=== PATIENT | male | born 1950 | race Caucasian/White ===

== ENCOUNTER → 2019-05-22 08:59 | Outpatient (CLI) | payer MEDICARE, OTHER, SELFPAY ==
[2019-05-22 09:51] LABS: Add Manual Diff / Slide Review NO; Basophils Absolute Auto 0 /uL (0-100); Basophils Percent Auto 0.6 % (0-2); Eosinophils Absolute Auto 200 /uL (0-450); Eosinophils Percent Auto 2.4 % (2-4); Hemoglobin 14.5 g/dL (13.5-17.5); Lymphocytes Absolute Auto 1700 /uL (1100-4500); Lymphocytes Percent Auto 21.6 % (25-40); Mean Corpuscular HGB Conc 33.7 % (30-36); Mean Corpuscular Hemoglobin 30.7 PG (26-34); Mean Corpuscular Volume 91.2 fL (80-100); Monocytes Absolute Auto 700 /uL (0-900); Monocytes Percent Auto 9.1 % (3-14); Neutrophils Absolute Auto 5200 /uL (1500-7000); Neutrophils Percent Auto 66.3 % (50-75); Platelet Count 202 X10^3/uL (150-400); Red Blood Cell Count 4.72 X10^6/uL (4.5-5.9); Red Cell Distribution Width 14.2 % (11.6-14.8); White Blood Cell Count 7.9 X10^3/uL (4.5-11.0)
[2019-05-22 10:02] LABS: Hemoglobin A1C% w Est Avg Glu 7.5 % (4.0-6.0)
[2019-05-22 10:10] LABS: Appearance Urine UA CLEAR; Bilirubin Urine UA NEGATIVE (NEGATIVE); Color Urine UA YELLOW; Glucose Urine UA NEGATIVE (Negative); Ketones Urine UA NEGATIVE (NEGATIVE); Leukocyte Esterase Urine UA NEGATIVE (NEGATIVE); Nitrite Urine UA NEGATIVE (Negative); Occult Blood Urine UA 1+ (Negative); Protein Urine UA TRACE (Negative); Urobilinogen Urine UA 0.2 E.U./dL (0.2); pH Urine UA 5.5 (4.5-8.0)
[2019-05-22 10:13] LABS: Creatinine Urine Random 125.7 mg/dL
[2019-05-22 10:14] LABS: Alanine Aminotransferase 29 IU/L (21-72); Albumin 4.4 g/dL (3.5-5.0); Albumin Globulin Ratio 1.4 (1.0-2.8); Alkaline Phosphatase 102 U/L (38-126); Aspartate Aminotransferase 37 IU/L (17-59); Bilirubin Total 0.6 mg/dL (0.2-1.3); Blood Urea Nitrogen 14 mg/dL (9-20); Calcium 9.3 mg/dL (8.4-10.2); Carbon Dioxide 26 mmol/L (22-32); Chloride 102 mmol/L (98-107); Estimated Glomerular Filt Rate > 60.0 mL/min (>60); Globulin 3.1 g/dL (1.7-4.1); Glucose 161 mg/dL (80-110); HEMOLYSIS < 15 (0-50); Potassium 4.2 mmol/L (3.4-5.1); Sodium 138 mmol/L (137-145); Total Protein 7.5 g/dL (6.3-8.2)
[2019-05-22 10:17] LABS: Microalbumin Urine Random 11.7 mg/dL (0-1.6)
[2019-05-22 10:33] LABS: Bacteria Urine Moderate (10-30); Hyaline Casts Urine 0-1/LPF; Mucus Urine 1+ (Negative); RBC Urine 1-5/HPF (0-5/HPF); Squamous Epithelial Cell Urine 0-1 /HPF (0-5/HPF); WBC Urine 5-10/HPF (0-5/HPF)
[2019-05-22 10:40] LABS: TSH w/ Reflex to FT4 1.92 uIU/mL (0.47-4.68)
[2019-05-26 09:38] LABS: Lipoprofile NMR SEE SEPERATE REPORT
== END ==
PROVIDERS: Family Provider Family Medicine; PCP Family Medicine; Visit Provider Specialist
DX: E11.65 Type 2 diabetes mellitus with hyperglycemia (principal); E78.00 Pure hypercholesterolemia, unspecified
CPT/HCPCS: 36415; 80053; 81001; 82043; 82570; 83036; 83704; 84443; 85025; 87086

== ENCOUNTER → 2022-08-21 08:50 | Outpatient (CLI) | payer MEDICARE, SELFPAY | PROVIDERS: Family Provider Family Medicine; PCP Family Medicine; Referring Provider Family Medicine; Visit Provider Surgery | DX: E11.621 Type 2 diabetes mellitus with foot ulcer (principal); L97.522 Non-pressure chronic ulcer of other part of left foot with fat layer exposed; E11.40 Type 2 diabetes mellitus with diabetic neuropathy, unspecified; L84 Corns and callosities | CPT/HCPCS: 11042; 87070; 87075; 87077; 87186; 87205; 99204; 99214 ==

== ENCOUNTER → 2022-08-22 07:03 | Outpatient (CLI) | payer MEDICARE, SELFPAY ==
--- NOTE | 2022-08-22 07:07 | DI.RAD.S_ITS ---
PROCEDURE: XR FOOT LT MIN 3V INDICATIONS: evaluate for osteomyelitis TECHNIQUE: 3 views of the foot were acquired. COMPARISON: None. FINDINGS: Bones: There is suggestion of erosion involving plantar aspect of 1st distal phalangeal tuft and distal shaft. No other area of abnormal bony erosion is seen. Osteoarthritic changes are noted throughout left foot particularly in the interphalangeal joints and 1st CMC joint. No fractures or dislocations. No suspicious bony lesions. Well-defined plantar and dorsal calcaneal enthesophytes are seen. Soft tissues: No tibiotalar joint effusion. Achilles tendon appears normal. IMPRESSION: Finding is suggestive of osteomyelitis involving plantar aspect of 1st distal phalangeal tuft. No fracture or dislocation. No suspicious bony lesion. Left foot osteoarthritis. Dictated by: Thee Orozco M.D. on 08/22/2022 at 11:25 Approved by: Thee Orozco M.D. on 08/22/2022 at 11:26
== END ==
PROVIDERS: Family Provider Family Medicine; PCP Family Medicine; Referring Provider Surgery; Visit Provider Surgery
DX: E11.621 Type 2 diabetes mellitus with foot ulcer (principal); L08.9 Local infection of the skin and subcutaneous tissue, unspecified; M19.072 Primary osteoarthritis, left ankle and foot
CPT/HCPCS: 73630

== ENCOUNTER → 2022-08-30 08:41 | Outpatient (CLI) | payer MEDICARE, SELFPAY | PROVIDERS: Family Provider Family Medicine; PCP Family Medicine; Referring Provider Family Medicine; Visit Provider Surgery | DX: E11.621 Type 2 diabetes mellitus with foot ulcer (principal); L97.522 Non-pressure chronic ulcer of other part of left foot with fat layer exposed; M86.172 Other acute osteomyelitis, left ankle and foot; L84 Corns and callosities; L53.9 Erythematous condition, unspecified; E11.40 Type 2 diabetes mellitus with diabetic neuropathy, unspecified | CPT/HCPCS: 11043; 99213 ==

== ENCOUNTER → 2022-09-07 08:42 | Outpatient (CLI) | payer MEDICARE, SELFPAY | PROVIDERS: Family Provider Family Medicine; PCP Family Medicine; Referring Provider Family Medicine; Visit Provider Surgery | DX: E11.621 Type 2 diabetes mellitus with foot ulcer (principal); L97.522 Non-pressure chronic ulcer of other part of left foot with fat layer exposed; L84 Corns and callosities; E11.40 Type 2 diabetes mellitus with diabetic neuropathy, unspecified | CPT/HCPCS: 11042 ==

== ENCOUNTER → 2023-03-08 06:57 | Outpatient (CLI) | payer MEDICARE, SELFPAY ==
--- NOTE | 2023-03-08 | DI.MRI.S_ITS ---
PROCEDURE: MR SHOULDER RT WO CON INDICATIONS: Complete rotator cuff tear of right shoulder TECHNIQUE: Noncontrast oblique coronal T2 fast spin echo with fat saturation, oblique sagittal T1 spin echo and T2 fast spin echo with fat saturation, axial T1 spin echo and T2 fast spin echo with fat saturation through the shoulder. COMPARISON: [facility], CR, XR SHOULDER 2+ VIEWS RIGHT, 02/27/2023, 14:39. FINDINGS: Image quality: Excellent. Rotator cuff: There is full-thickness tear of the supraspinatus tendon with tendon retraction to the musculotendinous junction. There is moderate supraspinatus muscle atrophy. There is at least high-grade partial thickness tear of the infraspinatus tendon. Suspect full-thickness tear of the superior fibers of infraspinatus tendon. No tendon retraction or muscle atrophy. There is full-thickness tear of the distal subscapularis tendon attachment. There is mild subscapularis muscle atrophy. Bones and bursae: No bone marrow contusions or fractures. There is moderate acromioclavicular and glenohumeral joint degeneration. The acromion demonstrates conventional anatomy, without an os acromiale. Small to moderate joint effusion. Capsule and soft tissues: There is diffuse degenerative labral tear. There is severe tendinosis of the long head of the biceps tendon. There is likely at least high-grade partial tear of the biceps tendon. The rotator interval appears normal, without fibrosis. The coracohumeral ligament is normal in thickness. IMPRESSION: 1. Full-thickness tear of the supraspinatus tendon with tendon retraction and moderate supraspinatus muscle atrophy. 2. Full-thickness tear of the subscapularis tendon. No tendon retraction. There is mild subscapularis muscle atrophy. 3. At least high-grade partial-thickness tear of the infraspinatus tendon. No tendon retraction or muscle atrophy. 4. At least high-grade partial tear and severe tendinosis of the long head of the biceps tendon. 5. Moderate acromioclavicular and glenohumeral joint degeneration. 6. Diffuse degenerative tear of the glenoid labrum. Dictated by: Mildred Miner M.D. on 03/08/2023 at 11:05 Approved by: Mildred Miner M.D. on 03/08/2023 at 11:37
== END ==
PROVIDERS: Family Provider Family Medicine; PCP Family Medicine; Referring Provider Orthopaedic Surgery; Visit Provider Orthopaedic Surgery
DX: M75.121 Complete rotator cuff tear or rupture of right shoulder, not specified as traumatic (principal); S46.111A Strain of muscle, fascia and tendon of long head of biceps, right arm, initial encounter; M19.011 Primary osteoarthritis, right shoulder; S43.491A Other sprain of right shoulder joint, initial encounter
CPT/HCPCS: 73221

== ENCOUNTER → 2023-05-22 07:26 | Outpatient (CLI) | payer MEDICARE, SELFPAY ==
[2023-05-22 08:07] LABS: Add Manual Diff / Slide Review NO; Basophils Absolute Auto 0 /uL (0-100); Basophils Percent Auto 0.6 % (0-2); Eosinophils Absolute Auto 200 /uL (0-450); Eosinophils Percent Auto 3.3 % (2-4); Hematocrit 44.4 % (41-53); Lymphocytes Absolute Auto 1200 /uL (1100-4500); Lymphocytes Percent Auto 18.7 % (25-40); Mean Corpuscular HGB Conc 33.7 % (30-36); Monocytes Absolute Auto 800 /uL (0-900); Monocytes Percent Auto 11.8 % (3-14); Neutrophils Absolute Auto 4200 /uL (1500-7000); Neutrophils Percent Auto 65.6 % (50-75); Platelet Count 161 X10^3/uL (150-400); Red Blood Cell Count 4.83 X10^6/uL (4.5-5.9); Red Cell Distribution Width 15.3 % (11.6-14.8); White Blood Cell Count 6.4 X10^3/uL (4.5-11.0)
--- NOTE | 2023-05-22 08:32 | DI.CT.S_ITS ---
PROCEDURE: CT UE RT WO CON INDICATIONS: PRIMARY OSTEOARTHRITIS OF RIGHT SHOULDER TECHNIQUE: Noncontrast 1-1.5 mm thick sections acquired from the acromioclavicular joint to the inferior scapula, with coronal and sagittal reformatting. COMPARISON: [facility] [place], CR, XR SHOULDER 2+ VIEWS RIGHT, 02/27/2023, 14:39. [facility], MR, MR SHOULDER RT WO CON, 03/08/2023, 7:21. FINDINGS: Image quality: Excellent. Bones: No acute osseous fracture. Moderate degenerative changes are seen at the glenohumeral joint with joint space narrowing and marginal osteophyte formation. No significant glenoid retroversion or anteversion. Humeral head is mildly high riding with narrowing of the acromiohumeral interval. Moderate degenerative changes are seen at the acromioclavicular joint. Degenerative changes are also noted in the included spine. Probable mild chronic posttraumatic deformity of the right posterior 4th rib. Soft tissues: Moderate fluid is seen in the subacromial/subdeltoid bursa and glenohumeral joint space. There is fatty infiltration and atrophy of the supraspinatus and infraspinatus muscles and the superior portion of the subscapularis muscle, consistent with underlying full-thickness rotator cuff tendon tears as seen on the prior MRI. The articular cartilages, labrum, ligaments, and tendons are not well evaluated with standard CT. No significant at slowly lymphadenopathy. The included portions of the right lung are clear. IMPRESSION: 1. Moderate glenohumeral osteoarthrosis. 2. Moderate acromioclavicular joint osteoarthrosis. 3. Known full-thickness rotator cuff tendon tears are better evaluated on the prior MRI from 03/08/2023. Humeral head is mildly high riding. 4. Moderate subacromial/subdeltoid bursal effusion communicates with the glenohumeral joint space. Approved by: Gui Bennett M.D. on 05/22/2023 at 13:33
[2023-05-22 08:51] LABS: BUN Creatinine Ratio 29.4 (6-22); Blood Urea Nitrogen 20 mg/dL (9-20); Calcium 9.6 mg/dL (8.4-10.2); Carbon Dioxide 24 mmol/L (22-32); Chloride 102 mmol/L (98-107); Estimated Glomerular Filt Rate > 60 mL/min (>60); Glucose 147 mg/dL (80-110); HEMOLYSIS < 15 (0-50); Potassium 4.3 mmol/L (3.4-5.1); Sodium 137 mmol/L (137-145)
== END ==
PROVIDERS: Family Provider Family Medicine; PCP Family Medicine; Referring Provider Orthopaedic Surgery; Visit Provider Orthopaedic Surgery
DX: Z01.818 Encounter for other preprocedural examination (principal); M19.011 Primary osteoarthritis, right shoulder; Z01.812 Encounter for preprocedural laboratory examination; M75.121 Complete rotator cuff tear or rupture of right shoulder, not specified as traumatic; M25.411 Effusion, right shoulder
CPT/HCPCS: 36415; 73200; 80048; 85025; 93005

== ENCOUNTER 2023-07-11 08:52 | Day surgery (SDC) | payer OTHER, SELFPAY ==
[2023-07-04 09:58] VITALS: BMI 34.9
[2023-07-11] VITALS (12 sets, daily range): BP systolic 105–144; BP diastolic 68–87; PULSE 87–116; RESP 12–92; TEMP 36.3–36.7; O2SAT 22–98; BMI 30.4
--- NOTE | 2023-07-11 06:00 | DI.RAD.S_ITS ---
PROCEDURE: XR SHOULDER RT 1V INDICATIONS: RTSA TECHNIQUE: 1 views of the shoulder were acquired. COMPARISON: None. FINDINGS: Bones: No fractures or dislocations. No suspicious bony lesions. Visualized ribs appear intact. Well-aligned, intact arthroplasty without hardware complication. Soft tissues: No suspicious soft tissue calcifications. IMPRESSION: Expected postop appearance of a right shoulder arthroplasty. Dictated by: Masoud Casillas M.D. on 07/11/2023 at 14:10 Approved by: Masoud Casillas M.D. on 07/11/2023 at 14:10
[2023-07-11] MEDS: LACTATED RINGERS 1,000 ML 42 ML IV ×2 (09:36→12:23)
[2023-07-11] MEDS: ACETAMINOPHEN 325 MG TABLET 975 MG PO (09:42)
[2023-07-11] MEDS: CELECOXIB 200 MG CAPSULE PO (09:43)
--- NOTE | 2023-07-11 10:11 | PM.HP.1 ---
History of Present Illness History of Present Illness Date Patient Seen: 07/11/23 Time Patient Seen: 10:11 Chief complaint: Right Total Shoulder Arthroplasty - Reverse 07/11 Narrative: This is a 72-year-old male with several years of increasing right shoulder pain and weakness. 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 Has not had any changes since I last saw him in clinic 05/14. Here with his today. Denies any distal numbness or tingling. PFS Medical History Vitamin D deficiency Proteinuria Kidney stone HLD (hyperlipidemia) Easy bruisability Osteoarthritis Diabetes HTN (hypertension) Surgical History Hx of cystoscopy (11/21/22) History of transurethral resection of prostate Hx of lithotripsy Social History household members: spouse Smoking Status: Never smoker alcohol intake: current Meds Home Medications and Allergies Home Medications Medication Instructions Recorded Confirmed Type amlodipine 2.5 mg tablet (Norvasc) 2.5 mg PO BEDTIME ##0 09/01/12 07/11/23 History metformin 500 mg tablet 500 mg PO BID 07/04/23 07/11/23 History naproxen sodium 220 mg capsule 660 mg PO DAILY PRN Pain 07/04/23 07/11/23 History (Aleve) finasteride 5 mg tablet 5 mg PO DAILY 07/11/23 07/11/23 History insulin glargine 100 unit/mL (3 58 unit SUBCUT DAILY 07/11/23 07/11/23 History mL) subcutaneous pen (Lantus Solostar U-100 Insulin) Allergies Allergy/AdvReac Type Severity Reaction Status Date / Time No Known Drug Allergies Allergy Verified 07/11/23 09:09 Review of Systems Review of Systems ROS: Yes All systems reviewed with the patient and are negative except as otherwise documented Exam Vital Signs (past 8 hours): - 07/11/23 09:17 Temperature 98.1 F Pulse Rate 87 Respiratory Rate 18 Blood Pressure 134/84 Pulse Oximetry 96 Oxygen Delivery Method Room Air Oxygen Delivery Method Room Air Narrative Exam Narrative: HEENT: Head atraumatic eyes anicteric moist mucous membranes Cardiovascular: Palpable peripheral pulses extremities are warm and well perfused Respiratory: Breathing comfortably on room air Psychiatric: Appropriate mood and affect Neuro: No acute deficits Musculoskeletal: Exam of the right upper extremity demonstrates limited forward elevation secondary to pain and weakness to about 90?. Sensation intact distally in median, radial, ulnar, axillary nerve distributions. Assessment & Plan Assessment & Plan narrative: Assessment: 72-year-old male with right rotator cuff tear arthropathy Plan: As discussed previously in clinic we are planning on a reverse total shoulder arthroplasty. Risks and benefits of surgery were discussed again including the risk of infection, damage to internal structures, bleeding, nerve injury, instability, need for revision surgery, blood clots, anesthesia and . No guarantees were made regarding outcomes. Patient expressed understanding and accepted these risks and wished to go forward with surgery and consent was signed. His right upper extremity was marked with my initials.
--- NOTE | 2023-07-11 10:50 | SUR.PREOP ---
Dr Cleary here to do right intrascalene block. Monitoring initiated and maintained throughout procedure. Time out performed at 1027. Oxygen and medications given per Dr Cleary's instruction. Injection time 1036. Block completed at 1041. Patient remained stable throughout procedure with no adverse reactions noted.
[2023-07-11] MEDS: CEFAZOLIN VIAL 3 GM in SODIUM CHLORIDE 0.9% 100 ML IV (11:05)
[2023-07-11] MEDS: TRANEXAMIC ACID 1,000 MG VIAL 1000 MG INJ (11:12)
--- NOTE | 2023-07-11 11:39 | SUR.OPER ---
Beach chair with [employer] shoulder positioner. Lower body on padded OR bed. Head in foam padded head cradle, secured with straps. Non-operative arm secured <90 degrees abduction padded with gel pad, 2 Pillows under knees. Safety belt at thigh. Cloth tape over blanket over lower legs.
[2023-07-11] MEDS: BUPIVACAINE 0.25% (PF) 30 ML, EPINEPHrine 0.15 MG INJ (11:43)
[2023-07-11] MEDS: OXYCODONE IR 5 MG TABLET PO (13:33)
[2023-07-11] MEDS: ONDANSETRON 4 MG/2 ML INJ IV (13:33)
--- NOTE | 2023-07-11 13:45 | P.OP_ITS ---
Operative Date/Time/Diagnoses Date of procedure: 07/11/23 Time of procedure: 13:45 Pre-op diagnosis: Right rotator cuff arthropathy Post-op diagnosis: same Procedure & Clinicians Procedure: Right reverse total shoulder arthroplasty Same procedure as scheduled: Yes Indications: Indications: This is a who has rotator cuff arthropathy. Symptoms have been present for years, insidious onset. Patient has failed conservative therapy including injections, physical therapy, anti-inflammatories and activity modification. After extensive discussion in clinic, they wished to go forward with surgery. Risks and benefits were described including the risk of infection, bleeding, damage to internal structures including nerves. We also discussed the risk of failure of surgery and the need for revision surgery as well as the risk of anesthesia. The patient expressed understanding with these risks and wished to go forward with surgery. Surgeon: Nathaniel Sorensen Pumping Supervisor: Ismael Nogueira Anesthesia Type: General Operative Notes Findings: Findings: Osteoarthritis of the glenoid and humeral head as well as a defient rotator cuff as noted on preoperative imaging and under direct visualization Closure Type: primary Specimen(s): none sent Prosthetic devices, grafts, tissues, transplants, or devices: Tornier implants Base plate: 29 mm, full wedge Glenosphere: 39 mm Stem: Perform 4. Poly: +0 concentric Estimated Blood Loss (mL): 50 Blood products transfused: none Procedure in detail: Patient was seen in the preoperative holding unit. The correct right shoulder was identified and marked with my initials. Again we discussed the risks and benefits of surgery and they wished to go forward with surgery. The patient was brought back to the operating room and placed supine on the operating table. Smooth endotracheal intubation was performed by anesthesia. All prominences were padded and they were placed into the beach chair position. Intravenous antibiotics were given. The right shoulder was then prepped with the standard sterile preparation and draping. A time-out was then performed in my initials were again identified on the correct shoulder. 1 g of IV tranexamic acid was given. A standard deltopectoral incision was made. Skin flaps were made. The cephalic vein was identified and retracted laterally. This was protected throughout the remainder of the case. Sharp dissection was made along the deltoid, subacromial and subcoracoid space to release adhesions. The conjoined tendon was identified and the axillary nerve was palpated and continuous using the tug test. It was protected throughout the remainder of the case. A brown retractor was placed underneath the deltoid muscle and a darach retractor underneath the conjoint tendon. The anterior circumflex artery and associated veins on the lower border of the subscapularis were identified and tied off using 0-Vicryl. The biceps tendon was identified in the bicipital groove. This was released from its sheath, and taken from its origin on the glenoid and tied into the pectoralis tendon for a solid tenodesis. We then began a subscapularis peel. The subscapularis was tagged with an Ethibond suture. A 360 degree circumferential release of the subscapularis was performed with protection of the axillary nerve. The coracohumeral ligament was released at the base of the coracoid. The coracoacromial ligament was left intact. The shoulder was then dislocated. Osteophytes were removed using combination of rongeur and osteotome. The rotator cuff was noted to be insufficient. An intramedullary guide was used set at version of 30?. Using an oscillating saw a conservative humeral head cut was made. Impaction reamers were reamed up to a size 4 Stem with a built-in angle 135?. A neck protector was placed. Attention was then turned to the glenoid. After retracting the humeral head posteriorly a circumferential release was performed of the capsule with protection of the axillary nerve. The labrum was then released starting at the biceps anchor and going around the rim a small amount of triceps was released from the inferior glenoid. A center guide pin was then placed using the guide, followed by Reamer. After adequate cartilage was removed the center drill hole was drilled and measured. The base plate was then implanted and screwed into place. The superior drill hole was drilled and filled in a nonlocking fashion, followed by the inferior and anterior holes in locking fashion, the posterior hole was also filled. A 39 glenosphere was then selected and screwed into plac e onto the base plate. Turning back to the humerus, the humeral head was delivered and trialed with a 0 concentric. The arm was taken through range of motion and this was felt to be stable. The trial was then removed and a dilute Betadine wash was then performed with 1 L of sterile saline. Before placing the final implant, drill holes were made in the bicipital groove for the subscapularis repair, and sutures were passed through the drill holes. The final stem was then impacted into the humerus. The shoulder was then reduced and again brought through range of motion and was felt to be stable. The interval was then closed using #2 Ethibond. The subscapularis was then repaired using a modified racking hitch with nice loupes. The deltopectoral interval was then closed with #2 Ethibond. The skin was closed with 2-0 PDS and nicole followed by Aquacel dressing. Patient was awoken from anesthesia and brought back to the postoperative recovery unit without issue. They were placed into a sling. Assisting participation: This operation could not have been safely performed (without compromising the technical results or length of the procedure) without the assistance of a skilled surgical instrument technician. The surgical instrument technician was medically necessary for proper positioning, retraction and manipulation of instruments, proper exposure, graft prep, and manipulation of tissue. Complications: none Post-operative Condition: stable Disposition: PACU Plan for aftercare: Postoperative instructions: Sling to remain on for 6 weeks. No external rotation past neutral for 6 weeks. Okay for him to come off her shower. Okay to shower over the Aquacel dressing. If any water gets underneath the dressing, remove the dressing. First postoperative visit in 2 weeks.
== END 2023-07-11 15:25 | disposition home or self-care (01) | DRG 483 ==
LOC: AC 14:17 → OR 07-25 13:58
PROVIDERS: Family Provider Family Medicine; PCP Family Medicine; Referring Provider Orthopaedic Surgery; Visit Provider Orthopaedic Surgery
PROC: 0RRJ00Z Replacement of Right Shoulder Joint with Reverse Ball and Socket Synthetic Substitute, Open Approach (ICD-10-PCS; CPT 23472; principal; 2023-07-11 10:15)
DX: M19.011 Primary osteoarthritis, right shoulder (principal); G89.18 Other acute postprocedural pain; E11.9 Type 2 diabetes mellitus without complications; I10 Essential (primary) hypertension; Z79.84 Long term (current) use of oral hypoglycemic drugs; Z79.4 Long term (current) use of insulin
CPT/HCPCS: 23472; 64450; 73020; 82962; C1776; J0171; J0330; J0690; J1100; J2405; J2704; J3010

== ENCOUNTER → 2023-11-06 06:59 | Outpatient (CLI) | payer MEDICARE, SELFPAY ==
[2023-11-06 08:02] LABS: Hemoglobin A1C% w Est Avg Glu 6.6 % (4.0-6.0)
[2023-11-06 08:14] LABS: Alanine Aminotransferase 18 IU/L (<50); Albumin 4.4 g/dL (3.5-5.0); Albumin Globulin Ratio 1.5 (1.0-2.8); Alkaline Phosphatase 82 U/L (38-126); Aspartate Aminotransferase 24 IU/L (17-59); BUN Creatinine Ratio 32.2 (6-22); Bilirubin Total 0.8 mg/dL (0.2-1.3); Blood Urea Nitrogen 19 mg/dL (9-20); Calcium 9.7 mg/dL (8.4-10.2); Carbon Dioxide 26 mmol/L (22-32); Chloride 105 mmol/L (98-107); Cholesterol 109 mg/dL (140-199); Estimated Glomerular Filt Rate > 60 mL/min (>60); Glucose 160 mg/dL (80-110); HDL Cholesterol 46 mg/dL (40-60); HEMOLYSIS < 15 (0-50); LDL Cholesterol Calculated 26 mg/dL (<100); Potassium 4.4 mmol/L (3.4-5.1); Sodium 139 mmol/L (137-145); Total Protein 7.4 g/dL (6.3-8.2); Triglycerides 186 mg/dL (35-150)
[2023-11-06 08:44] LABS: Prostate Specific Antigen Scrn 0.396 ng/mL (0.1-4.0)
== END ==
PROVIDERS: Family Provider Family Medicine; PCP Family Medicine; Referring Provider Family Medicine; Visit Provider Family Medicine
DX: E11.9 Type 2 diabetes mellitus without complications (principal); Z12.5 Encounter for screening for malignant neoplasm of prostate; E78.5 Hyperlipidemia, unspecified
CPT/HCPCS: 36415; 80053; 80061; 83036; G0103

== ENCOUNTER → 2024-01-11 07:06 | Outpatient (CLI) | payer MEDICARE, SELFPAY ==
[2024-01-11 08:00] LABS: Add Manual Diff / Slide Review NO; Basophils Absolute Auto 0 /uL (0-100); Basophils Percent Auto 0.6 % (0-2); Eosinophils Absolute Auto 200 /uL (0-450); Eosinophils Percent Auto 2.6 % (2-4); Hematocrit 44.2 % (41-53); Hemoglobin 14.4 g/dL (13.5-17.5); Lymphocytes Absolute Auto 1300 /uL (1100-4500); Lymphocytes Percent Auto 16.6 % (25-40); Mean Corpuscular HGB Conc 32.6 % (30-36); Mean Corpuscular Hemoglobin 29.8 PG (26-34); Mean Corpuscular Volume 91.4 fL (80-100); Monocytes Absolute Auto 800 /uL (0-900); Monocytes Percent Auto 9.6 % (3-14); Neutrophils Absolute Auto 5700 /uL (1500-7000); Neutrophils Percent Auto 70.6 % (50-75); Platelet Count 183 X10^3/uL (150-400); Red Blood Cell Count 4.83 X10^6/uL (4.5-5.9); Red Cell Distribution Width 15.2 % (11.6-14.8); White Blood Cell Count 8.1 X10^3/uL (4.5-11.0)
[2024-01-11 08:09] LABS: Appearance Urine UA CLEAR; Bilirubin Urine UA NEGATIVE (NEGATIVE); Color Urine UA YELLOW; Glucose Urine UA 2+ g/dL (Negative); Hemoglobin A1C% w Est Avg Glu 6.7 % (4.0-6.0); Ketones Urine UA NEGATIVE (NEGATIVE); Leukocyte Esterase Urine UA NEGATIVE (NEGATIVE); Nitrite Urine UA NEGATIVE (Negative); Occult Blood Urine UA 2+ (Negative); Protein Urine UA NEGATIVE (Negative); Specific Gravity Urine UA 1.015 (1.000-1.035); Urobilinogen Urine UA 0.2 E.U./dL (0.2); pH Urine UA 5.5 (4.5-8.0)
[2024-01-11 08:20] LABS: Bacteria Urine None Seen; Culture Indicated Urine Specimen Cultured; RBC Urine 1-5/HPF (0-5/HPF); Squamous Epithelial Cell Urine None Seen (0-5/HPF); Urine Volume 10mL (spun); WBC Urine 30-100/HPF (0-5/HPF)
[2024-01-11 08:24] LABS: Alanine Aminotransferase 19 IU/L (<50); Albumin 4.6 g/dL (3.5-5.0); Albumin Globulin Ratio 1.8 (1.0-2.8); Alkaline Phosphatase 74 U/L (38-126); Aspartate Aminotransferase 27 IU/L (17-59); BUN Creatinine Ratio 32.8 (6-22); Bilirubin Total 0.8 mg/dL (0.2-1.3); Blood Urea Nitrogen 20 mg/dL (9-20); Calcium 9.1 mg/dL (8.4-10.2); Carbon Dioxide 25 mmol/L (22-32); Chloride 103 mmol/L (98-107); Cholesterol 104 mg/dL (140-199); Estimated Glomerular Filt Rate > 60 mL/min (>60); Globulin 2.5 g/dL (1.7-4.1); Glucose 131 mg/dL (80-110); HDL Cholesterol 49 mg/dL (40-60); HEMOLYSIS < 15 (0-50); LDL Cholesterol Calculated 33 mg/dL (<100); Potassium 4.5 mmol/L (3.4-5.1); Sodium 137 mmol/L (137-145); Total Protein 7.1 g/dL (6.3-8.2); Triglycerides 109 mg/dL (35-150); VLDL Cholesterol Calculated 22 mg/dL (2-30)
[2024-01-11 08:40] LABS: Free T4, Direct Thyroxine 0.89 ng/dL (0.78-2.19)
[2024-01-11 08:42] LABS: Creatinine Urine Random 38.95 mg/dL
[2024-01-11 08:46] LABS: Microalbumin Urine Random 4.8 mg/dL (0-1.6)
[2024-01-11 08:55] LABS: Thyroid Stimulating Hormone 1.67 uIU/mL (0.47-4.68)
[2024-01-11 09:12] LABS: Vitamin B12 317 pg/mL (239-931)
== END ==
LOC: LAB 07:06
PROVIDERS: Family Provider Family Medicine; PCP Family Medicine; Referring Provider Specialist; Visit Provider Specialist
DX: E11.65 Type 2 diabetes mellitus with hyperglycemia (principal); E78.00 Pure hypercholesterolemia, unspecified
CPT/HCPCS: 36415; 80053; 80061; 81001; 82043; 82570; 82607; 83036; 84439; 84443; 85025; 87086

== ENCOUNTER 2024-02-07 07:45 | Day surgery (SDC) | payer MEDICARE, SELFPAY ==
[2024-02-06 08:19] VITALS: BMI 34.9
[2024-02-07] VITALS (10 sets, daily range): BP systolic 129–168; BP diastolic 62–93; PULSE 73–119; RESP 12–20; TEMP 36.2–36.7; O2SAT 95–99; BMI 34.9
--- NOTE | 2024-02-07 | DI.RAD.S_ITS ---
PROCEDURE: XR SHOULDER RT 1V INDICATIONS: R SHOULDER POST OP TECHNIQUE: Single views of the shoulder were acquired. COMPARISON: [facility], , XR SHOULDER RT 1V, 07/11/2023, 13:48. FINDINGS: Bones: Single view of the right shoulder demonstrates right reverse shoulder arthroplasty components in place. No unexpected fractures. Soft tissues: Expected intra-articular gas and overlying skin nicole. The visible lung is normal. IMPRESSION: Expected appearance post right shoulder arthroplasty. Dictated by: Adore Rao M.D. on 02/07/2024 at 16:48 Approved by: Adore Rao M.D. on 02/07/2024 at 16:48
[2024-02-07] MEDS: ACETAMINOPHEN 325 MG TABLET 975 MG PO (08:40)
[2024-02-07] MEDS: LACTATED RINGERS 1,000 ML 42 ML IV (08:42)
--- NOTE | 2024-02-07 09:37 | P.HP_ITS ---
History of Present Illness History of Present Illness Date Patient Seen: 02/07/24 Time Patient Seen: 09:37 Chief complaint: Right Total Shoulder Arthroplasty - Revision Narrative: This is a 73-year-old male who has a right reverse total shoulder arthroplasty and has been experiencing instability. Because of this we discussed performing a polyethylene exchange to a constrained liner. Risks and benefits of surgery were discussed again including the risk of infection, damage to internal structures, bleeding, nerve injury, instability, need for revision surgery, blood clots, anesthesia and . No guarantees were made regarding outcomes. Patient expressed understanding and accepted these risks and wished to go forward with surgery and consent was signed. [facility] Medical History Heart murmur Shoulder pain Vitamin D deficiency Proteinuria Kidney stone (~2021) HLD (hyperlipidemia) Easy bruisability Osteoarthritis Diabetes HTN (hypertension) Surgical History (Updated 02/06/24 @ 08:21 by Leslye Viera RN) History of total replacement of right shoulder joint (07/11/23) Anesthesia History of back surgery (~2008) Hx of cystoscopy (11/21/22) History of transurethral resection of prostate Hx of lithotripsy (~2021) Social History household members: spouse Smoking Status: Never smoker alcohol intake: current Meds Home Medications and Allergies Home Medications Medication Instructions Recorded Confirmed Type empagliflozin 10 mg tablet 10 mg PO DAILY #90 tabs 10/25/23 02/07/24 Rx (Jardiance) Allergies Allergy/AdvReac Type Severity Reaction Status Date / Time No Known Drug Allergies Allergy Verified 02/07/24 08:10 Review of Systems Review of Systems ROS: Yes All systems reviewed with the patient and are negative except as otherwise documented Exam Vital Signs (past 8 hours): - 02/07/24 08:14 Temperature 97.1 F L Pulse Rate 119 H Respiratory Rate 19 Blood Pressure 146/93 H Pulse Oximetry 97 Oxygen Delivery Method Room Air Oxygen Delivery Method Room Air Narrative Exam Narrative: HEENT: Head atraumatic eyes anicteric moist mucous membranes Cardiovascular: Palpable peripheral pulses extremities are warm and well perfused Respiratory: Breathing comfortably on room air Psychiatric: Appropriate mood and affect Neuro: No acute deficits Musculoskeletal: Currently the shoulder is reduced, he has excellent range of motion but some apprehension with external rotation at 90? Assessment & Plan Assessment & Plan narrative: Assessment: Right shoulder instability as previously noted with a full dislocation for several hours to days ago Plan: Discussed revision of his shoulder arthroplasty with polyethylene exchange to a constrained liner. He expressed understanding with the risks and wished to go forward with surgery. All of his questions were answered fully to his satisfaction.
[2024-02-07] MEDS: CEFAZOLIN VIAL 3 GM in SODIUM CHLORIDE 0.9% 100 ML IV (10:15)
[2024-02-07] MEDS: ACETAMINOPHEN IV 1,000 MG/100 ML VIAL 400 MG IV (10:20)
[2024-02-07] MEDS: TRANEXAMIC ACID 1,000 MG VIAL 1000 MG INJ (10:40)
--- NOTE | 2024-02-07 10:40 | SUR.OPER ---
Beach chair with [employer]quet shoulder positioner. Lower body on padded OR bed. Head in foam padded head cradle, secured with straps. Non-operative arm secured <90 degrees abduction. Pillow under knees. Safety belt at thigh. Cloth tape over blanket over lower legs.
[2024-02-07] MEDS: BUPIVACAINE 0.25% (PF) 30 ML, EPINEPHrine 0.15 MG INJ (10:47)
--- NOTE | 2024-02-07 11:23 | PM.OP.1 ---
Operative Date/Time/Diagnoses Date of procedure: 02/07/24 Time of procedure: 11:24 Pre-op diagnosis: Right shoulder instability status post reverse total shoulder arthroplasty Post-op diagnosis: same Procedure & Clinicians Procedure: Right shoulder polyethylene exchange (revision of 1 component) Same procedure as scheduled: Yes Indications: 73-year-old male with instability status post right reverse total shoulder arthroplasty. Due to continued instability with at least 1 occasion where he was dislocated for 3 hours, he was advised that he was indicated for a revision to a constrained liner Surgeon: Nathaniel Sorensen Supervisor Ship Maintenance Services: Grazyna Daigle Anesthesia Type: General Operative Notes Findings: Rupture of right subscapularis tendon as well as gross instability of the glenohumeral joint Closure Type: primary Specimen(s): none sent Prosthetic devices, grafts, tissues, transplants, or devices: Tornier implants Size 6 retentive poly for a +4 stem Estimated Blood Loss (mL): 50 Blood products transfused: none Procedure in detail: Patient was seen in the preoperative holding unit. The correct right shoulder was identified and marked with my initials. Again we discussed the risks and benefits of surgery and they wished to go forward with surgery. The patient was brought back to the operating room and placed supine on the operating table. Smooth endotracheal intubation was performed by anesthesia. All prominences were padded and they were placed into the beach chair position. Intravenous antibiotics were given. The right shoulder was then prepped with the standard sterile preparation and draping. A time-out was then performed in my initials were again identified on the correct shoulder. 1 g of IV tranexamic acid was given. A standard deltopectoral incision was made. Skin flaps were made. Sharp dissection was made along the deltoid, subacromial and subcoracoid space to release adhesions. The conjoined tendon was identified and the axillary nerve was palpated and continuous using the tug test. It was protected throughout the remainder of the case. A brown retractor was placed underneath the deltoid muscle and a darach retractor underneath the conjoint tendon. The subscapularis muscle was ntoed to be ruptured. The previous sutures were removed. The head was then dislocated easily and the previous polyethylene was then removed. We then trialed with a +6 retentive liner. The arm was taken through range of motion and this was felt to be stable. The trial was then removed and a dilute Betadine wash was then performed with 1 L of sterile saline. The final polyethylene was then implanted. The shoulder was then reduced and again brought through range of motion and was felt to be stable. The deltopectoral interval was then closed with #2 Ethibond. The skin was closed with 2-0 vicryl and nicole followed by Aquacel dressing. Patient was awoken from anesthesia and brought back to the postoperative recovery unit without issue. They were placed into a sling. Assisting participation: This operation could not have been safely performed (without compromising the technical results or length of the procedure) without the assistance of a skilled regional vice president surgical sales. The regional vice president surgical sales was medically necessary for proper positioning, retraction and manipulation of instruments, proper exposure, graft prep, and manipulation of tissue. Complications: none Post-operative Condition: stable Disposition: PACU Plan for aftercare: Postoperative instructions: Sling to remain on for 2 weeks while the wound heals. Okay for the sling to come off for shower. Okay to shower over the Aquacel dressing. If any water gets underneath the dressing, remove the dressing. First postoperative visit in 2 weeks.
[2024-02-07] MEDS: fentaNYL 100 MCG/2 ML INJ IV ×3 (11:59→12:28)
[2024-02-07] MEDS: METOCLOPRAMIDE 10 MG/2 ML INJ IV (12:00)
[2024-02-07] MEDS: ONDANSETRON 4 MG/2 ML INJ IV (12:00)
[2024-02-07] MEDS: KETOROLAC 30 MG/ML VIAL 15 MG IV (12:10)
[2024-02-07] MEDS: hydrOXYzine 50 MG/ML INJ IM (12:23)
--- NOTE | 2024-02-07 12:45 | SUR.PHASEI ---
1235 - Block start time 1238 -Time out performed. 1247 - injection time 1249 - block complete. Patient remained stable throughout procedure. No adverse reactions noted.
== END 2024-02-07 13:25 | disposition home or self-care (01) ==
PROVIDERS: Family Provider Family Medicine; PCP Family Medicine; Referring Provider Orthopaedic Surgery; Visit Provider Orthopaedic Surgery
PROC: (CPT 23473; principal; 2024-02-07 09:15)
DX: M25.311 Other instability, right shoulder (principal); Z96.611 Presence of right artificial shoulder joint; G89.18 Other acute postprocedural pain
CPT/HCPCS: 23473; 64450; 73020; 82962; C1776; J0136; J0171; J0690; J1100; J1170; J1885; J2405; J2704; J2765; J3010; J3410; J3490

== ENCOUNTER → 2024-02-18 11:12 | Outpatient (CLI) | payer MEDICARE, SELFPAY ==
--- NOTE | 2024-02-18 | DI.CT.S_ITS ---
PROCEDURE: CT ANGIO CHEST PE PROTOCOL INDICATIONS: Shortness of breath TECHNIQUE: After the administration of intravenous contrast, 2 mm thick sections acquired from the pulmonary apices to the posterior costophrenic angles. 3-dimensional maximum intensity projection (MIP) coronal and sagittal reformats were then acquired through the thorax. For radiation dose reduction, the following was used: automated exposure control, adjustment of mA and/or kV according to patient size. COMPARISON: None. FINDINGS: Image quality: Diagnostic. Pulmonary arteries: Pulmonary arteries are normal in size, and demonstrate no intraluminal filling defects to suggest central pulmonary embolism. Lower Neck: No enlarged lymph nodes. Thyroid: No thyroid nodules which require sonographic follow up, per consensus guidelines. Axillae: No enlarged lymph nodes. Chest Wall: Unremarkable. Bones: Unremarkable. Lungs and Pleura: Large bilateral pleural effusions. Associated compressive bibasilar atelectasis. No pulmonary edema. Heart: Cardiomegaly with enlargement of the left atrium and left ventricle.. No pericardial effusion. Reflux of contrast into the hepatic veins suggests a degree of right heart failure. Thoracic Vessels: No aortic aneurysm. Mediastinum and Shanna: No enlarged lymph nodes. Esophagus: No wall thickening. No hiatal hernia. Upper Abdomen: Probable cirrhosis. IMPRESSION: 1. No pulmonary emboli. 2. 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 3. Probable cirrhosis. Comment: Findings were discussed with TY Daigle at the time of study dictation. Dictated by: Alexi Arriaga M.D. on 02/18/2024 at 12:55 Approved by: Alexi Arriaga M.D. on 02/18/2024 at 13:00
[2024-02-18 12:25] LABS: Estimated Glomerular Filt Rate > 60 mL/min (>60)
== END ==
PROVIDERS: Radiology Diagnostic Radiology; Family Provider Family Medicine; PCP Family Medicine; Referring Provider Physician Assistant Surgical; Visit Provider Physician Assistant Surgical
DX: J90 Pleural effusion, not elsewhere classified (principal); R06.02 Shortness of breath; I51.7 Cardiomegaly; J98.11 Atelectasis
CPT/HCPCS: 36415; 71275; 82565; Q9967

== ENCOUNTER → 2024-02-19 09:20 | Outpatient (CLI) | payer MEDICARE, SELFPAY ==
[2024-02-19 10:31] LABS: Add Manual Diff / Slide Review NO; Basophils Absolute Auto 100 /uL (0-100); Eosinophils Absolute Auto 200 /uL (0-450); Eosinophils Percent Auto 1.7 % (2-4); Hematocrit 41.8 % (41-53); Hemoglobin 13.5 g/dL (13.5-17.5); Lymphocytes Absolute Auto 1200 /uL (1100-4500); Lymphocytes Percent Auto 9.9 % (25-40); Mean Corpuscular HGB Conc 32.3 % (30-36); Mean Corpuscular Hemoglobin 29.7 PG (26-34); Monocytes Absolute Auto 1100 /uL (0-900); Monocytes Percent Auto 8.6 % (3-14); Neutrophils Absolute Auto 9900 /uL (1500-7000); Neutrophils Percent Auto 78.8 % (50-75); Platelet Count 336 X10^3/uL (150-400); Red Blood Cell Count 4.54 X10^6/uL (4.5-5.9); Red Cell Distribution Width 16.1 % (11.6-14.8); White Blood Cell Count 12.6 X10^3/uL (4.5-11.0)
[2024-02-19 10:50] LABS: Alanine Aminotransferase 26 IU/L (<50); Albumin 3.7 g/dL (3.5-5.0); Albumin Globulin Ratio 1.4 (1.0-2.8); Alkaline Phosphatase 133 U/L (38-126); Aspartate Aminotransferase 27 IU/L (17-59); BUN Creatinine Ratio 23.7 (6-22); Bilirubin Total 1.2 mg/dL (0.2-1.3); Blood Urea Nitrogen 18 mg/dL (9-20); Calcium 8.5 mg/dL (8.4-10.2); Carbon Dioxide 21 mmol/L (22-32); Chloride 102 mmol/L (98-107); Estimated Glomerular Filt Rate > 60 mL/min (>60); Globulin 2.7 g/dL (1.7-4.1); Glucose 130 mg/dL (80-110); HEMOLYSIS < 15 (0-50); Potassium 4.5 mmol/L (3.4-5.1); Sodium 132 mmol/L (137-145); Total Protein 6.4 g/dL (6.3-8.2)
[2024-02-19 10:54] LABS: NT-proBNP (BNP-Adult 18+) 5750 pg/mL (<125)
== END ==
PROVIDERS: Family Provider Family Medicine; PCP Family Medicine; Referring Provider Family Medicine; Visit Provider Family Medicine
DX: I50.9 Heart failure, unspecified (principal)
CPT/HCPCS: 36415; 80053; 83880; 85025

== ENCOUNTER → 2024-02-19 10:21 | Outpatient (CLI) | payer MEDICARE, SELFPAY ==
--- NOTE | 2024-02-19 10:22 | DI.ECHO.S_ITS ---
[facility] +---------+ Hospital : : [address] : [place] : : [id number] : : Phone: [phone] Echocardiogram Report + + :Name: MARCOS EPSTEIN Study Date: 02/19/2024 Height: 75 in : :Hospital ReadingLocation: Weight: 250 lb : : Gender: Male BSA: 2.4 m2 : :: 1950 Age: 73 yrs BP: 110/78 mmHg: :Reason For Study: EVAL MURMUR : :Ordering Physician: JUAN DANIEL, : :NADIA Performed By: Litzy Ricks : :Referring: NADIA FRANCES : + + Interpretation Summary senior controls technician notes: Patient had shoulder surgery approximately 12 days ago and symptoms have been increasing since. He complains of shortness of breath when laying down and unable to sleep, also has loss of appetitive and nausea 1) Mildly to moderately enlarged left ventricle with severely reduced systolic function (EF 10-15%). 2) The right ventricle is not well visualized. Grossly, mildly enlarged right ventricle with mildly reduced function. 3) There is severe aortic stenosis (valve area 0.51, mean gradient 27mHg, severity ratio 0.17). 4) There is mild to moderate aortic regurgitation. 5) There is moderate mitral regurgitation. 6) The IVC is dilated (diameter is greater than 2.1 cm) and it collapses less than 50% with a sniff. This suggests a high right atrial pressure of 15 mm Hg. 7) No prior Echo available for comparison. Recommend ER evaluation and urgent cardiology consult. Procedure: A two-dimensional transthoracic echocardiogram with color flow and Doppler was performed. The study quality was technically adequate. There is no prior echocardiogram noted for this patient. Patient was scanned in a seated position due to shortness of breath/ difficulties when laying down. The patient was in sinus tachycardia with heart rates between 138-140 bpm during the exam. Left Ventricle: The left ventricle is mild-moderately dilated. The estimated left ventricular end diastolic volume is 177 ml. The left ventricle is normal in size. Left ventricular end diastolic volume when indexed to BSA of 73.35ml/m2. The ejection fraction is estimated to be 10-15%. Diastolic function could not be accurately assessed due to tachycardia. Right Ventricle: The right ventricle is not well visualized. The right ventricle is mildly dilated. Right ventricular systolic function is mildly reduced. Atria: The left atrium is moderately dilated. Right atrium not well visualized. There is no Doppler evidence for an interatrial shunt. Mitral Valve: There is moderate mitral annular calcification. The mitral valve leaflets appear mildly thickened, but open well. There is moderate mitral regurgitation. Aortic Valve: The aortic valve is not well visualized. The peak aortic velocity is 3.3 m/sec. The aortic valve mean gradient is 27 mmHg. The calculated aortic valve area is 0.57 cm2. There is severe aortic stenosis. There is mild to moderate aortic regurgitation. Tricuspid Valve: The tricuspid valve is not well visualized. Pulmonary artery pressures cannot be estimated because of the lack of a measurable TR jet velocity but the IVC suggests a CVP of around 15 mmHg. Pulmonic Valve: The pulmonic valve is not well seen, but is grossly normal. There is no pulmonic valvular regurgitation. Great Vessels: The aortic root is normal size. The ascending aorta is normal in size. The IVC is dilated (diameter is greater than 2.1 cm) and it collapses less than 50% with a sniff. This suggests a high right atrial pressure of 15 mm Hg. Pericardium/ Pleura There is no pericardial effusion. There is a pleural effusion present. MMode/2D Measurements & Calculations LVIDd: 6.2 cm LVOT diam: 2.0 cm LVIDs: 5.9 cm Ao root diam: 3.4 cm FS: 4.6 % asc Aorta Diam: 3.7 cm EPSS: 2.4 cm IVSd: 1.2 cm LVPWd: 0.93 cm LV shoemaker. diameter/BSA (cm/m^2): 2.6 LV sys. diameter/BSA (cm/m^2): 2.4 LA A2 area: 30.6 cm2 IVC diam: 3.1 cm LA A4 area: 22.6 cm2 LA length (vol): 6.5 cm LA vol: 90.8 ml LA vol index: 37.6 ml/m2 Doppler Measurements & Calculations Ao V2 max: 332.6 cm/sec LVOT Max Kentrell: 52.0 cm/sec Ao V2 mean: 234.4 cm/sec LV V1 max P.1 mmHg Ao max P.7 mmHg LV V1 VTI: 8.5 cm Ao mean P.9 mmHg JUNI(I,D): 0.57 cm2 Ao V2 VTI: 48.7 cm JUNI(V,D): 0.51 cm2 sev ratio: 0.17 JUNI indexed to BSA (cm^2/m^2): 0.24 MV E max kentrell: 121.8 cm/sec PA pr(Accel): 50.7 mmHg Med Peak E' Kentrell: 5.8 cm/sec E/E' med: 20.9 Lat Peak E' Kentrell: 8.2 cm/sec E/E' lat: 14.9 E/e' average: 17.9 MV dec time: 0.11 sec MR ERO: 0.29 cm2 MR PISA: 4.1 cm2 SV(LVOT): 27.8 ml MR flow rate: 138.9 cm3/sec MR PISA radius: 0.81 cm Reading Physician:12:02 PM
== END ==
PROVIDERS: Family Provider Family Medicine; PCP Family Medicine; Referring Provider Family Medicine; Visit Provider Family Medicine
DX: I08.0 Rheumatic disorders of both mitral and aortic valves (principal); J90 Pleural effusion, not elsewhere classified; I50.9 Heart failure, unspecified; R01.1 Cardiac murmur, unspecified
CPT/HCPCS: 36415; 80053; 83880; 85025; 93306

== ENCOUNTER → 2024-03-01 07:44 | Outpatient (CLI) | payer MEDICARE, SELFPAY ==
[2024-03-01 09:35] LABS: BUN Creatinine Ratio 23.9 (6-22); Blood Urea Nitrogen 21 mg/dL (9-20); Calcium 9.1 mg/dL (8.4-10.2); Carbon Dioxide 25 mmol/L (22-32); Chloride 101 mmol/L (98-107); Estimated Glomerular Filt Rate > 60 mL/min (>60); Glucose 134 mg/dL (80-110); HEMOLYSIS < 15 (0-50); Potassium 4.7 mmol/L (3.4-5.1); Sodium 136 mmol/L (137-145)
== END ==
PROVIDERS: Family Provider Family Medicine; PCP Family Medicine; Referring Provider Family Medicine; Visit Provider Family Medicine
DX: I50.41 Acute combined systolic (congestive) and diastolic (congestive) heart failure (principal)
CPT/HCPCS: 36415; 80048

== ENCOUNTER → 2024-03-14 07:00 | Outpatient (CLI) | payer MEDICARE, SELFPAY ==
[2024-03-14 08:22] LABS: BUN Creatinine Ratio 27.4 (6-22); Blood Urea Nitrogen 32 mg/dL (9-20); Calcium 9.5 mg/dL (8.4-10.2); Carbon Dioxide 26 mmol/L (22-32); Chloride 101 mmol/L (98-107); Estimated Glomerular Filt Rate > 60 mL/min (>60); Glucose 97 mg/dL (80-110); HEMOLYSIS < 15 (0-50); Potassium 4.7 mmol/L (3.4-5.1); Sodium 137 mmol/L (137-145)
== END ==
PROVIDERS: Family Provider Family Medicine; PCP Family Medicine; Referring Provider Internal Medicine; Visit Provider Internal Medicine
DX: I50.20 Unspecified systolic (congestive) heart failure (principal)
CPT/HCPCS: 36415; 80048

== ENCOUNTER → 2024-03-28 07:00 | Outpatient (CLI) | payer MEDICARE, SELFPAY ==
[2024-03-28 07:50] LABS: Hematocrit 47.6 % (41-53); Hemoglobin 15.4 g/dL (13.5-17.5); Mean Corpuscular HGB Conc 32.4 % (30-36); Mean Corpuscular Hemoglobin 29.8 PG (26-34); Mean Corpuscular Volume 92.2 fL (80-100); Platelet Count 196 X10^3/uL (150-400); Red Blood Cell Count 5.16 X10^6/uL (4.5-5.9); Red Cell Distribution Width 16.1 % (11.6-14.8); White Blood Cell Count 7.9 X10^3/uL (4.5-11.0)
[2024-03-28 08:05] LABS: Hemoglobin A1C% w Est Avg Glu 6.3 % (4.0-6.0)
[2024-03-28 09:42] LABS: Alanine Aminotransferase 28 IU/L (<50); Albumin 4.4 g/dL (3.5-5.0); Albumin Globulin Ratio 1.8 (1.0-2.8); Alkaline Phosphatase 97 U/L (38-126); Aspartate Aminotransferase 27 IU/L (17-59); BUN Creatinine Ratio 21.8 (6-22); Bilirubin Total 0.8 mg/dL (0.2-1.3); Blood Urea Nitrogen 27 mg/dL (9-20); Calcium 9.7 mg/dL (8.4-10.2); Carbon Dioxide 24 mmol/L (22-32); Chloride 101 mmol/L (98-107); Estimated Glomerular Filt Rate > 60 mL/min (>60); Globulin 2.5 g/dL (1.7-4.1); Glucose 96 mg/dL (80-110); HEMOLYSIS 26 (0-50); Sodium 138 mmol/L (137-145); Total Protein 6.9 g/dL (6.3-8.2)
== END ==
PROVIDERS: Family Provider Family Medicine; PCP Family Medicine; Referring Provider Internal Medicine; Visit Provider Internal Medicine
DX: E11.9 Type 2 diabetes mellitus without complications (principal); I48.3 Typical atrial flutter; E78.5 Hyperlipidemia, unspecified; I50.9 Heart failure, unspecified
CPT/HCPCS: 36415; 80053; 83036; 85027

== ENCOUNTER → 2024-05-12 07:04 | Outpatient (CLI) | payer MEDICARE, SELFPAY ==
--- NOTE | 2024-05-12 07:07 | DI.ECHO.S_ITS ---
[place] +---------+ Hospital : : [address] : : [place] : : [address] : : Phone: [phone] Echocardiogram Report + + :Name: MARCOS EPSTEIN Study Date: 05/12/2024 Height: 76 in : :[facility] ReadingLocation: Weight: 250 lb : : Gender: Male BSA: 2.4 m2 : :: 1950 Age: 73 yrs BP: 162/110 mmHg: :Reason For Study: S/P TRANSCATHETER AORTIC VALVE REPLACEMENT : :Ordering Physician: TAN, : :JUSTA Performed By: Litzy Ricks : :Referring: JUSTA MADDOX : + + Interpretation Summary The ejection fraction is estimated to be 20-25%. The left ventricle is mild-moderately dilated. Grade II diastolic dysfunction. The right ventricular systolic function is normal. Pulmonary artery pressures cannot be estimated because of the lack of a measurable TR jet velocity. The left atrium is mildly dilated. There is mild mitral regurgitation. The prosthetic aortic valve appears to open well. The prosthetic aortic valve is not well visualized. There is normal prosthetic aortic valve function. Procedure: A two-dimensional transthoracic echocardiogram with color flow and Doppler was performed. The study quality was technically adequate. Comparison is made with the echocardiogram of 02/19/2024. The heart rate ranged between 79-87 bpm during the study. Left Ventricle: The left ventricle is mild-moderately dilated. The estimated left ventricular end diastolic volume is 146 ml. Left ventricular wall thickness is mildly increased. The ejection fraction is estimated to be 20- 25%. Grade II diastolic dysfunction. Right Ventricle: The right ventricle is mildly dilated. The right ventricular systolic function is normal. Atria: The left atrium is mildly dilated. Right atrial size is normal. There is no Doppler evidence for an interatrial shunt. Mitral Valve: There is moderate mitral annular calcification. The mitral valve leaflets appear mildly thickened, but open well. The mitral valve mean gradient is 4.8 mmHg. There is mild mitral regurgitation. Aortic Valve: There is a prosthetic aortic valve. The prosthetic aortic valve appears to open well. The prosthetic aortic valve is not well visualized. There is probable normal prosthetic aortic valve function. The peak aortic velocity is 2.0 m/sec. The aortic valve mean gradient is 11 mmHg. The calculated aortic valve area is 1.3 cm2. No aortic regurgitation is present. Tricuspid Valve: The tricuspid valve leaflets are thin and pliable. There is mild tricuspid regurgitation. Pulmonary artery pressures cannot be estimated because of the lack of a measurable TR jet velocity. Pulmonic Valve: The pulmonic valve leaflets are thin and pliable; valve motion is normal. There is no pulmonic valvular regurgitation. Great Vessels: The aortic root is not well visualized. The ascending aorta is at the upper limits of normal in size. The IVC is of normal diameter and collapses greater than 50% with a sniff. This suggests a low right atrial pressure of 3 mm Hg. Pericardium/ Pleura There is no pericardial effusion. There is no pleural effusion. MMode/2D Measurements & Calculations LVIDd: 6.4 cm LVOT diam: 2.2 cm LVIDs: 5.6 cm asc Aorta Diam: 3.7 cm FS: 11.7 % Ao Arch Diam (Prox Trans): 3.0 cm EPSS: 1.8 cm IVSd: 1.2 cm LVPWd: 1.1 cm LV shoemaker. diameter/BSA (cm/m^2): 2.6 LV sys. diameter/BSA (cm/m^2): 2.3 LA A2 area: 29.2 cm2 RA long axis: 6.3 cm LA A4 area: 24.2 cm2 RA area: 22.5 cm2 LA length (vol): 6.5 cm RA vol: 68.9 ml LA vol: 92.7 ml RA : 28.3 ml/m2 LA vol index: 38.0 ml/m2 IVC diam: 0.99 cm RVD1 (basal): 4.2 cm RVD2 (mid): 3.1 cm TAPSE: 2.1 cm Doppler Measurements & Calculations Ao V2 max: 199.5 cm/sec LVOT Max Kentrell: 71.9 cm/sec Ao V2 mean: 162.0 cm/sec LV V1 max P.1 mmHg Ao max P.0 mmHg LV V1 VTI: 13.5 cm Ao mean P.0 mmHg JUNI(I,D): 1.3 cm2 Ao V2 VTI: 39.1 cm JUNI(V,D): 1.3 cm2 sev ratio: 0.35 JUNI indexed to BSA (cm^2/m^2): 0.52 MV E max kentrell: 165.4 cm/sec PA V2 max: 75.8 cm/sec MV A max kentrell: 0.92 cm/sec PA V2 mean: 53.3 cm/sec MV E/A: 180.0 PA mean P.2 mmHg Med Peak E' Kentrell: 8.8 cm/sec PA pr(Accel): 32.8 mmHg E/E' med: 18.8 Lat Peak E' Kentrell: 9.4 cm/sec E/E' lat: 17.6 E/e' average: 18.2 MV dec time: 0.14 sec MVA(VTI): 1.5 cm2 MV V2 mean: 88.1 cm/sec SV(LVOT): 49.2 ml MV mean P.8 mmHg MV V2 VTI: 33.9 cm Reading Physician:BEATRIZ
[2024-05-12 09:12] LABS: Hematocrit 48.5 % (41-53); Hemoglobin 15.7 g/dL (13.5-17.5); Mean Corpuscular HGB Conc 32.3 % (30-36); Mean Corpuscular Hemoglobin 29.7 PG (26-34); Platelet Count 141 X10^3/uL (150-400); Red Blood Cell Count 5.27 X10^6/uL (4.5-5.9); Red Cell Distribution Width 17.6 % (11.6-14.8); White Blood Cell Count 7.5 X10^3/uL (4.5-11.0)
[2024-05-12 09:28] LABS: BUN Creatinine Ratio 31.1 (6-22); Blood Urea Nitrogen 19 mg/dL (9-20); Calcium 9.6 mg/dL (8.4-10.2); Carbon Dioxide 24 mmol/L (22-32); Chloride 102 mmol/L (98-107); Estimated Glomerular Filt Rate > 60 mL/min (>60); Glucose 99 mg/dL (80-110); HEMOLYSIS 64 (0-50); Sodium 135 mmol/L (137-145)
== END ==
PROVIDERS: Family Provider Family Medicine; PCP Family Medicine; Referring Provider Internal Medicine; Visit Provider Internal Medicine
DX: I08.1 Rheumatic disorders of both mitral and tricuspid valves (principal); Z95.3 Presence of xenogenic heart valve
CPT/HCPCS: 36415; 80048; 85027; 93306

== ENCOUNTER → 2024-06-12 07:05 | Outpatient (CLI) | payer MEDICARE, SELFPAY ==
[2024-06-12 08:47] LABS: BUN Creatinine Ratio 28.4 (6-22); Blood Urea Nitrogen 19 mg/dL (9-20); Calcium 9.7 mg/dL (8.4-10.2); Carbon Dioxide 26 mmol/L (22-32); Chloride 101 mmol/L (98-107); Estimated Glomerular Filt Rate > 60 mL/min (>60); Glucose 138 mg/dL (80-110); HEMOLYSIS < 15 (0-50); Potassium 4.5 mmol/L (3.4-5.1); Sodium 137 mmol/L (137-145)
== END ==
PROVIDERS: Family Provider Family Medicine; PCP Family Medicine; Referring Provider Internal Medicine; Visit Provider Internal Medicine
DX: I50.20 Unspecified systolic (congestive) heart failure (principal)
CPT/HCPCS: 36415; 80048

== ENCOUNTER → 2024-09-19 07:03 | Outpatient (CLI) | payer MEDICARE, SELFPAY ==
[2024-09-19 07:57] LABS: Hemoglobin A1C% w Est Avg Glu 7.3 % (4.0-6.0)
[2024-09-19 08:08] LABS: Alanine Aminotransferase 40 IU/L (<50); Albumin 4.8 g/dL (3.5-5.0); Albumin Globulin Ratio 1.8 (1.0-2.8); Alkaline Phosphatase 103 U/L (38-126); Aspartate Aminotransferase 40 IU/L (17-59); BUN Creatinine Ratio 26.4 (6-22); Bilirubin Total 0.7 mg/dL (0.2-1.3); Blood Urea Nitrogen 19 mg/dL (9-20); Calcium 9.8 mg/dL (8.4-10.2); Carbon Dioxide 25 mmol/L (22-32); Chloride 102 mmol/L (98-107); Cholesterol 112 mg/dL (140-199); Estimated Glomerular Filt Rate > 60 mL/min (>60); Globulin 2.6 g/dL (1.7-4.1); Glucose 201 mg/dL (80-110); HDL Cholesterol 39 mg/dL (40-60); HEMOLYSIS 25 (0-50); LDL Cholesterol Calculated 37 mg/dL (<100); Sodium 136 mmol/L (137-145); Total Protein 7.4 g/dL (6.3-8.2); Triglycerides 178 mg/dL (35-150)
[2024-09-19 08:09] LABS: Potassium 5.5 mmol/L (3.4-5.1)
[2024-09-19 08:11] LABS: NT-proBNP (BNP-Adult 18+) 161 pg/mL (<125)
[2024-09-19 08:14] LABS: Creatinine Urine Random 53.47 mg/dL
[2024-09-19 08:19] LABS: Microalbumin Urine Random 8.9 mg/dL (0-1.6)
[2024-09-19 08:33] LABS: TSH w/ Reflex to FT4 2.33 uIU/mL (0.47-4.68)
== END ==
PROVIDERS: Family Provider Family Medicine; PCP Family Medicine; Referring Provider Family Medicine; Visit Provider Family Medicine
DX: I50.9 Heart failure, unspecified (principal); E11.9 Type 2 diabetes mellitus without complications; E78.5 Hyperlipidemia, unspecified
CPT/HCPCS: 36415; 80053; 80061; 82043; 82570; 83036; 83880; 84443

== ENCOUNTER → 2024-10-06 06:58 | Outpatient (CLI) | payer MEDICARE, SELFPAY ==
[2024-10-06 08:45] LABS: BUN Creatinine Ratio 26.1 (6-22); Blood Urea Nitrogen 18 mg/dL (9-20); Calcium 9.6 mg/dL (8.4-10.2); Carbon Dioxide 17 mmol/L (22-32); Chloride 104 mmol/L (98-107); Estimated Glomerular Filt Rate > 60 mL/min (>60); Glucose 163 mg/dL (80-110); HEMOLYSIS < 15 (0-50); Potassium 5.3 mmol/L (3.4-5.1); Sodium 134 mmol/L (137-145)
== END ==
PROVIDERS: Family Provider Family Medicine; PCP Family Medicine; Referring Provider Internal Medicine; Visit Provider Internal Medicine
DX: I50.20 Unspecified systolic (congestive) heart failure (principal)
CPT/HCPCS: 36415; 80048

== ENCOUNTER → 2025-04-16 07:05 | Outpatient (CLI) | payer MEDICARE, SELFPAY ==
[2025-04-16 08:27] LABS: Hemoglobin A1C% w Est Avg Glu 9.4 % (4.0-6.0)
[2025-04-16 08:51] LABS: Alanine Aminotransferase 26 IU/L (<50); Albumin 4.6 g/dL (3.5-5.0); Albumin Globulin Ratio 1.7 (1.0-2.8); Alkaline Phosphatase 89 U/L (38-126); Blood Urea Nitrogen 23 mg/dL (9-20); Calcium 9.4 mg/dL (8.4-10.2); Carbon Dioxide 21 mmol/L (22-32); Chloride 102 mmol/L (98-107); Estimated Glomerular Filt Rate > 60 mL/min (>60); Globulin 2.7 g/dL (1.7-4.1); Glucose 172 mg/dL (70-99); HEMOLYSIS 20 (0-50); Potassium 4.5 mmol/L (3.4-5.1); Sodium 137 mmol/L (137-145); Total Protein 7.3 g/dL (6.3-8.2)
== END ==
PROVIDERS: Family Provider Family Medicine; PCP Family Medicine; Referring Provider Internal Medicine; Visit Provider Internal Medicine
DX: E11.9 Type 2 diabetes mellitus without complications (principal); Z12.5 Encounter for screening for malignant neoplasm of prostate; E87.5 Hyperkalemia; I10 Essential (primary) hypertension; R35.1 Nocturia; N40.1 Benign prostatic hyperplasia with lower urinary tract symptoms; I50.9 Heart failure, unspecified
CPT/HCPCS: 80053; 83036; G0103

== ENCOUNTER → 2025-05-07 07:54 | Outpatient (CLI) | payer MEDICARE, SELFPAY ==
--- NOTE | 2025-05-07 07:55 | DI.ECHO.S_ITS ---
[facility] +---------+ Hospital : : [address] : : [place] : : [id number] : : Phone: [phone] Echocardiogram Report + + :Name: MARCOS EPSTEIN Study Date: 05/07/2025 Height: 76 in : :[facility] ReadingLocation: Weight: 260 lb : : Gender: Male BSA: 2.5 m2 : :: 1950 Age: 74 yrs BP: 139/95 mmHg: :Reason For Study: STATUS POST TAVR : :Ordering Physician: TAN, : :JUSTA Performed By: Litzy Ricks : :Referring: JUSTA MADDOX : + + Interpretation Summary Left ventricular ejection fraction is estimated to be 45 +/- 5%. Normal diastolic function. The right ventricle is normal in size and function. The right ventricular systolic pressure is estimated to be at least 22 mmHg based on an estimated right atrial pressure of 3 mm Hg. The prosthetic aortic valve is well-seated. No significant valvular abnormalities. Procedure: A two-dimensional transthoracic echocardiogram with color flow and Doppler was performed. The study quality was technically adequate. Comparison is made with the echocardiogram of 05/12/2024. The patient was in sinus rhythm with heart rates between 74-84 bpm during the exam. Left Ventricle: The left ventricle is normal in size. There is mild concentric left ventricular hypertrophy. Left ventricular ejection fraction is estimated to be 45 +/- 5%. Normal diastolic function. Right Ventricle: The right ventricle is normal in size and function. Atria: The left atrial size is normal. Right atrial size is normal. There is no Doppler evidence for an interatrial shunt. Mitral Valve: The mitral valve leaflets are mildly calcified. There is moderate mitral annular calcification. The mitral valve mean gradient is 4.8 mmHg. There is mild mitral regurgitation. Aortic Valve: There is a bioprosthetic aortic valve. The prosthetic aortic valve is well-seated. The peak aortic velocity is 2.3 m/sec. The aortic valve mean gradient is 11.8 mmHg. The calculated aortic valve area is 1.1 cm2. No aortic regurgitation is present. Tricuspid Valve: The tricuspid valve leaflets are thin and pliable. There is mild tricuspid regurgitation. The right ventricular systolic pressure is estimated to be at least 22 mmHg based on an estimated right atrial pressure of 3 mm Hg. Pulmonic Valve: The pulmonic valve leaflets are thin and pliable; valve motion is normal. There is trace pulmonic regurgitation. Great Vessels: The aortic root is normal size. The ascending aorta is at the upper limits of normal in size. The IVC is of normal diameter and collapses greater than 50% with a sniff. This suggests a low right atrial pressure of 3 mm Hg. Pericardium/ Pleura There is no pericardial effusion. There is no pleural effusion. MMode/2D Measurements & Calculations LVIDd: 5.5 cm LVOT diam: 2.2 cm LVIDs: 3.9 cm asc Aorta Diam: 3.7 cm FS: 28.0 % Ao Arch Diam (Prox Trans): 3.0 cm IVSd: 1.2 cm LVPWd: 1.0 cm LV shoemaker. diameter/BSA (cm/m^2): 2.2 LV sys. diameter/BSA (cm/m^2): 1.6 LA A2 area: 22.6 cm2 RA long axis: 4.8 cm LA A4 area: 21.2 cm2 RA area: 14.0 cm2 LA length (vol): 6.1 cm RA vol: 34.8 ml LA vol: 66.7 ml RA : 14.1 ml/m2 LA vol index: 26.9 ml/m2 IVC diam: 1.4 cm RVD1 (basal): 3.6 cm RVD2 (mid): 3.1 cm TAPSE: 2.4 cm Doppler Measurements & Calculations Ao V2 max: 232.5 cm/sec LVOT Max Kentrell: 66.1 cm/sec Ao V2 mean: 155.5 cm/sec LV V1 max P.7 mmHg Ao max P.3 mmHg LV V1 VTI: 12.6 cm Ao mean P.8 mmHg JUNI(I,D): 1.2 cm2 Ao V2 VTI: 41.6 cm JUNI(V,D): 1.1 cm2 sev ratio: 0.30 JUNI indexed to BSA (cm^2/m^2): 0.49 MV E max kentrell: 98.3 cm/sec TR max kentrell: 219.0 cm/sec MV A max kentrell: 157.5 cm/sec TR max P.2 mmHg MV E/A: 0.62 PA V2 max: 75.6 cm/sec Med Peak E' Kentrell: 9.9 cm/sec PA V2 mean: 52.2 cm/sec E/E' med: 9.9 PA mean P.2 mmHg Lat Peak E' Kentrell: 11.7 cm/sec PA pr(Accel): 32.3 mmHg E/E' lat: 8.4 E/e' average: 9.1 MV dec time: 0.26 sec MVA(VTI): 1.4 cm2 MV V2 mean: 97.0 cm/sec SV(LVOT): 50.0 ml MV mean P.5 mmHg MV V2 VTI: 35.0 cm Reading Physician:10:48 AM
== END ==
LOC: ECHO 07:55
PROVIDERS: Family Provider Family Medicine; PCP Family Medicine; Referring Provider Family Medicine; Visit Provider Internal Medicine
DX: I08.1 Rheumatic disorders of both mitral and tricuspid valves (principal); Z95.3 Presence of xenogenic heart valve
CPT/HCPCS: 93306